=== PATIENT | male | born 1960 | race Hispanic/Latino ===

== ENCOUNTER 2019-01-28 08:59 | Outpatient (CLI) | payer OTHER, MEDICAID | END 2019-01-28 09:00 | disposition home or self-care (01) | LOC: PAT 08:59 ==

== ENCOUNTER 2019-03-03 07:49 | Day surgery (SDC) | payer OTHER ==
[2015-03-22 11:14] VITALS: BMI 27.3
[2019-03-03] MEDS ORDERED: Rocuronium 10 mg/ml (5 ml) ONE (09:56)
[2019-03-03] MEDS ORDERED: Midazolam 2 MG/2 ML VIAL ONE (09:56)
[2019-03-03] MEDS ORDERED: Lidocaine 1% Inj (20ml) ONE (09:56)
[2019-03-03] MEDS ORDERED: Propofol 10 mg/ml Inj (20 ML) ONE (09:56)
[2019-03-03] MEDS ORDERED: Acetaminophen IV IVPB ONE (10:05)
[2019-03-03] MEDS ORDERED: CeFAZolin 1 gm in NS 100ml IVPB ONE (10:05)
[2019-03-03] MEDS ORDERED: Bupivacaine Liposomal Inj 20 ml ONE (10:13)
[2019-03-03] MEDS ORDERED: Bupivacaine Liposomal Inj 20 ml INJ ONE (10:16)
--- NOTE | 2019-03-03 11:45 | PCM.SURG1 ---
Surgeon's Initial Post Op Note - Surgeon's Notes Surgeon: Dr. Leonel Kaur [employer] Aide: Tyra De Oliveira, PGY-2 Type of Anesthesia: General Endo Anesthesia Administered By: Dr. Powers Pre-Operative Diagnosis: Left inguinal hernia Operative Findings: Incarcerated left inguinal hernia Post-Operative Diagnosis: Incarcerated left inguinal hernia, direct and indirect Operation Performed: Open left inguinal hernia repair with mesh and plug Specimen/Specimens Removed: Hernia sac Estimated Blood Loss: EBL {In ML}: 20 Blood Products Given: N/A Drains Used: No Drains Post-Op Condition: Good Date of Surgery/Procedure: 03/03/19 Time of Surgery/Procedure: 11:45
[2019-03-03] MEDS ORDERED: Oxycodone/Acetaminophen 5/325 mg Tab PO PRN (11:46)
[2019-03-03] MEDS ORDERED: HYDROmorphone 0.5 mg/0.5 ml ISec IVP PRN (11:58)
[2019-03-03] MEDS ORDERED: Sodium Chloride 0.9% 1,000 ML IV SCH (12:00)
[2019-03-03 13:01] VITALS: PULSE 68; RESP 18; TEMP 97.8; O2SAT 97
[2019-03-03 14:10] VITALS: BP 120/85
--- NOTE | 2019-03-09 14:09 | OP ---
PROCEDURE DATE: 03/03/2019 SURGEON: Leonel Kaur MD MAGNETIC LOCATER: Tyra De Oliveira DO, PGY-2 AUDIT INTERN: Jonathan Powers MD ANESTHESIA: General - Exparel. PREOPERATIVE DIAGNOSIS: Incarcerated left inguinal hernia. POSTOPERATIVE DIAGNOSIS: Incarcerated left inguinal hernia ([place]). PROCEDURE: Left inguinal herniorrhaphy with mesh. OPERATIVE INDICATION: The patient is a 58-year-old male with a lifelong enlarged left inguinal mass that is becoming progressively worse and had been reducible up until recently and now no longer reduces and is giving more discomfort. He had a previous inguinal hernia repair and now wishes to have this one done. Risks, benefits and the alternatives were fully discussed with the patient and he signs an informed consent. DESCRIPTION OF PROCEDURE: The patient is brought to the operating room from the holding area where the correct site has been marked and the patient has been cleared by Anesthesia. He undergoes time-out procedure and is identified via his wristband. He is placed on the table in a supine manner, undergoes the induction of general anesthesia and the insertion of an intralaryngeal mask. The lower extremities are protected with a sequential compression device and the groin is prepped with electrical clipping and Hibiclens chlorhexidine preparation. The patient has preoperatively voided Following aseptic draping, transverse incision is made with infiltration of the skin with a long-acting bupivacaine. The incision was carried on down through the subcutaneous tissues and the superficial fascia of Malcolm to the external oblique and hemostasis was contained with electrocoagulating cautery. The inguinal canal was enlarged with the nonreducible mass and the external oblique is exposed and the external ring entered and the external oblique with cautery scalpel. Blunt mobilization of the cord is employed and the cord is now elevated into the incision on a Ming tape. Cremaster muscle is skeletonized and dissection is carried on down through chronically thickened and scarred inflammatory reaction over the hernia sac which is finally dissected free and opened and the hernia sac is now from the cord structures with care to avoid injury to the vas and the vasculature. There is a portion of sigmoid colon involving the internal ring which is freed by lysing the adhesions and hemostasis is contained with cautery. The inguinal abel and the indirect inguinal hernia constituting a [place] hernia are now corrected by placement of a PerFix plug sutured in place with running pursestring 2-0 Prolene. The inguinal abel is now reduced and covered with a PerFix patch (Marlex) which is sutured in place around the internal ring with 2-0 Polysorb suture. The inguinal abel is now reduced along with the hernia and the hernia sac had been transected over a TA-30 stapler and submitted to pathology in formalin. The external oblique is closed with running 2-0 Polysorb suture and the subcutaneous and subcuticular closure of 3-0 Polysorb was employed. The skin closed with the Auto suture skin stapler. Additional blocking of the L1 nerve at the anterior-superior iliac spine and the general femoral nerve plexus is also blocked at the pubis. A dry dressing is applied. Attention is placed on the testicle pulling the cord into place and the patient is awakened, extubated and transported to the recovery room in a satisfactory condition. Sponge, instrument and suture count were verified as correct at the end of the procedure. Estimated blood loss during this procedure was less than 20 mL of blood. Leonel Kaur MD
== END 2019-03-03 15:38 | disposition home or self-care (01) ==
LOC: SDS 07:49
PROVIDERS: ATTEND Surgery
DX: K40.30 Unilateral inguinal hernia, with obstruction, without gangrene, not specified as recurrent (principal)
CPT/HCPCS: 49507; 88302; J0131; J0690; J1170; J1885; J2250; J2405; J2704; J3010; J7030; J7120